=== PATIENT | male | born 1950 | race African-American/Black ===

== ENCOUNTER 2025-01-17 10:52 | Emergency (ER) | payer SELFPAY ==
[2025-01-17] MEDS ORDERED: ACETAMINOPHEN INJECTION 100 ML ONE (11:24)
[2025-01-17 11:29] VITALS: TEMP 97.8; BMI 21.9
[2025-01-17] MEDS: ACETAMINOPHEN 1000 MG/100 ML BAG IVPB ONE (11:42)
[2025-01-17 11:48] LABS: MCHC 31.8 g/dl (32.3-36.5); MEAN CELL VOLUME 88.9 fl (79.0-92.2); MEAN PLT VOLUME 9.9 fl (9.4-12.4); RDW 13.0 % (12.2-16.6)
[2025-01-17 12:03] LABS: EPI CELLS 3 /uL (0-25.1); HYALINE CASTS 0 /uL (0-3.1); URINE APPEARANCE CLOUDY; URINE BACTERIA 25 /uL (0-1359); URINE BILIRUBIN NEGATIVE (NEGATIVE); URINE COLOR YELLOW; URINE GLUCOSE (UA) NEGATIVE (NEGATIVE); URINE KETONE NEGATIVE (NEGATIVE); URINE LEUK ESTERASE 3+ (NEGATIVE); URINE NITRITE NEGATIVE (NEGATIVE); URINE PROTEIN 1+ (NEGATIVE); URINE RBC 1648 /uL (0-23.9); URINE UROBILINOGEN 0.2 mg/dL (0.2-1.0); URINE WBC 1489 /uL (0-25.8)
[2025-01-17 12:08] LABS: GLUCOSE,RANDOM 110.0 mg/dL (74-106); TOT PROT 7.2 g/dl (6.4-8.2)
[2025-01-17 12:09] LABS: CO2 27.0 mmol/L (21-32)
[2025-01-17 12:11] LABS: ALK PHOS 75.0 U/L (40-150)
[2025-01-17 12:13] LABS: SGOT/AST 19.0 U/L (5-34); SGPT/ALT 10.0 U/L (0-55)
[2025-01-17 12:14] LABS: CREATININE 1.04 mg/dL (0.55-1.3)
[2025-01-17] MEDS ORDERED: CEFTRIAXONE 1 GM/50 ML BAG ONE (12:18)
[2025-01-17] MEDS: CEFTRIAXONE 1 GM in DEXTROSE 5%-WATER - 100 ML IVPB ONE (12:57)
[2025-01-17] MEDS ORDERED: KETOROLAC TROMETHAMINE 15 MG/ML VIAL ONE (14:20)
[2025-01-17] MEDS: KETOROLAC TROMETHAMINE 15 MG/ML VIAL IVPUSH ONE (14:25)
[2025-01-17 14:43] VITALS: BP 129/76; PULSE 80; RESP 18
== END 2025-01-17 15:00 | disposition home or self-care (01) ==
LOC: JER 10:52
PROC: 3E03329 Introduction of Other Anti-infective into Peripheral Vein, Percutaneous Approach (ICD-10-PCS; principal; 2025-01-17)
PROC: 3E033NZ Introduction of Analgesics, Hypnotics, Sedatives into Peripheral Vein, Percutaneous Approach (ICD-10-PCS; 2025-01-17)
PROC: 3E0333Z Introduction of Anti-inflammatory into Peripheral Vein, Percutaneous Approach (ICD-10-PCS; 2025-01-17)
DX: N39.0 Urinary tract infection, site not specified (principal); N43.3 Hydrocele, unspecified; N45.2 Orchitis; N50.811 Right testicular pain; R31.9 Hematuria, unspecified; R30.9 Painful micturition, unspecified; R10.30 Lower abdominal pain, unspecified; R94.31 Abnormal electrocardiogram [ECG] [EKG]
CPT/HCPCS: 36415; 74176-TC; 76870-TC; 80053; 81003; 85027; 87086; 93005; 93010; 99285-25